=== PATIENT | female | born 1990 | race African-American/Black ===

== ENCOUNTER 2019-05-17 01:52 | Emergency (ER) | payer MEDICAID, OTHER ==
[~2019-05-17] VITALS: Ht 170.2 cm; Wt 92.5 kg
[~2019-05-17 01:52] MED LIST: ALPR0.5T2 PO
[2019-05-17 01:58] VITALS: BP 153/98
--- NOTE | 2019-05-17 02:04 | NUR ---
PT TAKEN TO BED 12
--- NOTE | 2019-05-17 02:20 | NUR ---
DR LATHAM ASSESSING PT.
--- NOTE | 2019-05-17 02:24 | NUR ---
PT C/O SWELLING AND 10/10 THROBBING PAIN IN HER RIGHT THUMB. DESCRIBES THAT SHE HAS WARTS ON HER HANDS THAT SHE PICKS, AND THE SORE IN THE MIDDLE OF THE REDNESS STARTED THAT. DENIES ANY TRAUMA TO THE THUMB. NKA. DENIES TAKING ANYTHING FOR THE PAIN OR INFLAMMATION. VSS.
--- NOTE | 2019-05-17 02:50 | NUR ---
XRAY IN ROOM
[2019-05-17] MEDS ORDERED: LIDOCAINE OINTMENT 5% 35 GM TUBE TP ONE (03:20)
[2019-05-17] MEDS ORDERED: LIDOCAINE JELLY 2% 30 ML TUBE TP ONE ×2 (03:24→03:30)
--- NOTE | 2019-05-17 03:30 | NUR ---
EMT CLEANING AND DRESSING FINGERS.
[2019-05-17 03:32] VITALS: BP 153/98
--- NOTE | 2019-05-17 03:33 | NUR ---
Patient discharged with v/s stable. Written and verbal after care instructions given and explained. Patient alert, oriented and verbalized understanding of instructions. Ambulatory with steady gait. All questions addressed prior to discharge. ID band removed. Patient advised to follow up with PMD. Rx of MOTRIN, COMPOUND W given. Patient educated on indication of medication including possible reaction and side effects. Opportunity to ask questions provided and answered.
== END 2019-05-17 03:33 | disposition home or self-care (01) ==
LOC: MED 01:52
DX: B07.9 Viral wart, unspecified (principal); B07.0 Plantar wart; J45.909 Unspecified asthma, uncomplicated; F17.200 Nicotine dependence, unspecified, uncomplicated; Z79.899 Other long term (current) drug therapy
CPT/HCPCS: 73130; 99283; Q0092

== ENCOUNTER 2023-06-27 20:33 | Emergency (ER) | payer OTHER ==
[~2023-06-27] VITALS: Ht 167.6 cm; Wt 49.9 kg
[2023-06-27 20:44] VITALS: BP 140/80; PULSE 85; RESP 18; TEMP 99.3; O2SAT 100
[2023-06-28 00:42] VITALS: BP 140/80; PULSE 85; RESP 18; TEMP 99.8; O2SAT 100
[2023-06-28 01:15] LABS: BASOPHILS % (AUTO) 0.2 % (0.0-2.0); HEMATOCRIT 37.6 % (36-48); HEMOGLOBIN 12.6 g/dL (12.0-16.0); LYMPHOCYTES # (AUTO) 1.6 K/uL (2.5-16.5); LYMPHOCYTES % (AUTO) 8.1 % (20.5-51.1); MEAN CORPUSCULAR HEMOGLOBIN 32 pg (27-31); MEAN CORPUSCULAR HGB CONC 34 g/dL (33-37); MEAN CORPUSCULAR VOLUME 94.1 fL (80-94); MONOCYTES # (AUTO) 1.1 K/uL (0.8-1.0); MONOCYTES % (AUTO) 5.5 % (1.7-9.3); NEUTROPHILS # (AUTO) 17.2 K/uL (1.8-7.7); NEUTROPHILS % (AUTO) 86.2 % (42.2-75.2); PLATELET COUNT (AUTO) 299 K/uL (140-450); RED CELL DISTRIBUTION WIDTH 13.6 % (11.6-13.7)
[2023-06-28 01:29] LABS: ANION GAP 16.9 (8-16); CALCIUM 8.8 mg/dL (8.5-10.1); CARBON DIOXIDE 24.5 mmol/L (21-32); CREATININE 0.7 mg/dL (0.6-1.3); POTASSIUM 3.4 mmol/L (3.5-5.1)
[2023-06-28 01:39] LABS: INR 1.07 (0.8-1.2); PROTHROMBIN TIME 11.2 secs (10.8-13.4)
== END 2023-06-28 01:35 | disposition left against medical advice (07) ==
LOC: MED 20:33
DX: Z48.01 Encounter for change or removal of surgical wound dressing (principal); D72.829 Elevated white blood cell count, unspecified; J45.909 Unspecified asthma, uncomplicated; F41.9 Anxiety disorder, unspecified; Z98.890 Other specified postprocedural states; Z79.899 Other long term (current) drug therapy
CPT/HCPCS: 36415; 80048; 85025; 85610; 99283